=== PATIENT | female | born 1995 | race African-American/Black ===

== ENCOUNTER 2018-02-07 12:01 | Emergency (ER) | payer OTHER ==
[~2018-02-07] VITALS: Ht 154.9 cm; Wt 54.4 kg
[~2018-02-07 12:01] MED LIST: ADVIL200 MG PO; NOHOMEMEDICATIONS; NORCO 5-325 TA1 EACH PO
[2018-02-07] MEDS ORDERED: BUTALB-APAP-CA1 EACH PO (13:06)
== END 2018-02-07 13:23 | disposition home or self-care (01) ==
LOC: ER 12:01
DX: G44.209 Tension-type headache, unspecified, not intractable (principal); V89.2XXA Person injured in unspecified motor-vehicle accident, traffic, initial encounter; Y93.89 Activity, other specified; Y92.89 Other specified places as the place of occurrence of the external cause; Y99.8 Other external cause status